=== PATIENT | female | born 2000 | race Caucasian/White ===

== ENCOUNTER 2021-02-15 15:44 | Emergency (ER) | payer MEDICAID ==
[~2021-02-15] VITALS: Ht 157.5 cm; Wt 70.5 kg
[2021-02-15 15:56] VITALS: BP 125/49
--- NOTE | 2021-02-15 16:01 | NUR ---
JHOAN. HANDED ON URINE CUP.
--- NOTE | 2021-02-15 16:26 | NUR ---
20 Y/O F BIB SELF FROM HOME, PATIENT PRESENTS TO ED WITH N&V STARTED YESTERDAY 02/14/21 WITH BODY ACHES AND FATIGUE. PT STATES SHE HAS NO ABD PAIN, PAINFUL URINATION, DIARRHEA, CONSTIPATION; SKIN IS PINK/WARM/DRY; AAOX4 WITH EVEN AND STEADY GAIT; LUNGS CLEAR BL; HR EVEN AND REGULAR; PT DENIES ANY FEVER, CP, SOB, OR COUGH AT THIS TIME; PATIENT STATES PAIN OF 8/10 AT THIS TIME WHEN AMBULATING; VSS; PATIENT POSITIONED FOR COMFORT; HOB ELEVATED; BEDRAILS UP X2; BED DOWN. ER MD MADE AWARE OF PT STATUS. LMP: 01/19/21 "LAST 2 WEEKS OF LAST MONTH" PMH: NONE NKA MED: NONE
[2021-02-15] MEDS ORDERED: ONDANSETRON 4 MG ODT PO ONE (17:05)
--- NOTE | 2021-02-15 17:18 | NUR ---
NOVEL WAS SWABBED AND SENT WITH LAB [facility]TI[facility]
[2021-02-15] MEDS ORDERED: ONDA4TAB PO (17:40)
[2021-02-15 17:52] VITALS: BP 125/49
== END 2021-02-15 17:52 | disposition home or self-care (01) ==
LOC: MED 15:44
DX: R11.2 Nausea with vomiting, unspecified (principal); R19.7 Diarrhea, unspecified; Z79.899 Other long term (current) drug therapy
CPT/HCPCS: 81002; 81025; 99283; Q0162